=== PATIENT | male | born 1980 | race Two or more races ===

== ENCOUNTER 2022-05-26 11:08 | Emergency (ER) | payer OTHER ==
[~2022-05-26] VITALS: Ht 180.3 cm; Wt 90.7 kg
--- NOTE | 2022-05-26 11:27 | NUR ---
RHONA LAPJojo OFFICERS FOR MEDICAL CLEARANCE,C/O DIZZINESS. VITALS ARE WITHIN NORMAL LIMITS. NO RESP DISTRESS NOTED. AWAITING MD ORDERS.
--- NOTE | 2022-05-26 11:46 | NUR ---
IV LINE ESTABLISHED ON LAC #18, BLOOD DRAWN AND SENT TO LAB
--- NOTE | 2022-05-26 11:50 | NUR ---
US TECH AT BEDSIDE
[2022-05-26] MEDS ORDERED: OLANZAPINE 5 MG TABLET ONE (11:54)
[2022-05-26] MEDS ORDERED: OLANZAPINE 5 MG TABLET PO ONE (12:00)
--- NOTE | 2022-05-26 12:03 | NUR ---
TECH AT BEDSIDE FOR EKG
--- NOTE | 2022-05-26 12:05 | NUR ---
X RAY AT BEDSIDE
[2022-05-26 12:09] LABS: BASOPHILS % (AUTO) 0.1 % (0.0-2.0); EOSINOPHILS % (AUTO) 0.3 % (0.0-6.0); HEMATOCRIT 54 % (39-51); HEMOGLOBIN 18.4 g/dL (13.5-17.5); LYMPHOCYTES # (AUTO) 1.6 K/uL (0.8-4.8); LYMPHOCYTES % (AUTO) 16.3 % (20.0-44.0); MEAN CORPUSCULAR HGB CONC 34 g/dl (31.0-36.0); MEAN CORPUSCULAR VOLUME 95 fL (80-96); MONOCYTES # (AUTO) 0.4 K/uL (0.1-1.30); MONOCYTES % (AUTO) 4.5 % (2.0-12.0); NEUTROPHILS # (AUTO) 7.8 K/uL (1.8-8.9); NEUTROPHILS % (AUTO) 78.8 % (43.0-81.0); PLATELET COUNT (AUTO) 226 K/uL (150-450); RED BLOOD CELL COUNT(AUTO) 5.71 MIL/uL (4.5-6.0); WHITE BLOOD COUNT (AUTO) 9.9 K/uL (4.3-11.0)
[2022-05-26] MEDS ORDERED: IOHEXOL-350 100 ML VIAL IV ONE (12:11)
[2022-05-26 12:34] LABS: CALCIUM, SERUM 9.6 mg/dL (8.5-10.1); CARBON DIOXIDE 30 mmol/L (21-32); CHLORIDE 101 mmol/L (98-107); CREATININE 1.1 mg/dL (0.6-1.3); GLUCOSE 117 mg/dL (74-106); SODIUM SERUM 139 mmol/L (136-145); UREA NITROGEN, BLOOD 11 mg/dL (7-18)
--- NOTE | 2022-05-26 13:16 | NUR ---
IV removed. Catheter intact and site benign. Pressure and 4x4 applied to site. No bleeding noted.
--- NOTE | 2022-05-26 13:17 | NUR ---
Patient discharged to law enforcement, ok to book, in stable condition. Written and verbal after care instructions given. Pt accompanied by 2 Dave, [id number]
[2022-05-26 13:18] VITALS: BP 138/86
== END 2022-05-26 13:20 ==
LOC: ER 11:20
DX: R07.89 Other chest pain (principal); F17.200 Nicotine dependence, unspecified, uncomplicated; R22.43 Localized swelling, mass and lump, lower limb, bilateral
CPT/HCPCS: 99285; 93970; 71275; 71045; 93005 ×2; 85025; 80048; 36415; 84484; Q9967